=== PATIENT | male | born 1970 | race Caucasian/White ===

== ENCOUNTER → 2017-12-02 07:34 | Outpatient (CLI) | payer OTHER, SELFPAY ==
--- NOTE | 2017-12-02 | DI.MRI.S_ITS ---
PROCEDURE: MR LUMBAR SPINE WO CON INDICATIONS: OTHER NERVE ROOT AND PLEXUS DISORDERS TECHNIQUE: Noncontrast sagittal T1 spin echo and T2 fast echo, sagittal STIR, axial T1 and T2 fast spin echo through the lumbar spine. In cases with scoliosis, additional coronal T2 fast spin echo may be performed. COMPARISON: None. FINDINGS: Image quality: Excellent. Alignment and Curvature: There is normal bony alignment. Bone Marrow: Reactive endplate change is noted adjacent to the L5-S1 disc.. No acute vertebral body compression fractures. Spinal Cord: Conus medullaris terminates at the L2 level. Visualized cord demonstrates normal signal and size. Paraspinous Soft Tissues: No paravertebral masses. L1-L2: Normal appearance. L2-L3: Normal appearance. L3-L4: Normal appearance. L4-L5: Normal appearance. L5-S1: Loss of disc signal and slight loss of disc height. Mild, diffuse disc bulge. Moderate-sized central disc extrusion. Extruded disc material abuts and slightly displaces the traversing right S1 nerve root. No central stenosis. Mild bilateral neural foraminal narrowing secondary to disc disease. IMPRESSION: 1. Moderate L5-S1 degenerative disc disease. 2. Moderate-sized, central L5-S1 disc extrusion. Extruded disc material abuts and slightly displaces the traversing right S1 nerve root. Please correlate with clinical data. 3. No central stenosis. 4. Mild bilateral L5-S1 neural foraminal narrowing. Dictated by: Estefani Mercedes MD, PhD on 12/02/2017 at 10:52 Approved by: Estefani Mercedes MD, PhD on 12/02/2017 at 10:56
== END ==
PROVIDERS: Visit Provider Radiology Diagnostic Radiology
DX: G58.8 Other specified mononeuropathies (principal); M51.37 Other intervertebral disc degeneration, lumbosacral region; M51.26 Other intervertebral disc displacement, lumbar region
CPT/HCPCS: 72148